=== PATIENT | male | born 1950 | race American Indian/Alaskan Native ===

== ENCOUNTER 2018-07-08 13:27 | Emergency (ER) | payer MEDICARE ==
[2018-07-08] MEDS: KEPPRA 1,000 MG/NS 0.75% 100ML 1,000 MG/100 ML BAG IV ONE ×2 (14:01→14:44)
[2018-07-08 14:12] LABS: Basophils % (Auto) 0.7 % (0.0-1.8); Eosinophils # (Auto) 0.1 K/mm3 (0.0-0.4); Eosinophils % (Auto) 1.2 % (0.0-4.3); Hematocrit 38.5 % (35.5-45.6); Hemoglobin 12.8 gm/dl (11.8-15.2); Lymphocytes # (Auto) 0.6 K/mm3 (1.2-5.4); Lymphocytes % (Auto) 13.9 % (13.4-35.0); Mean Corpuscular HGB Conc 33 % (32-34); Mean Corpuscular Hemoglobin 31 pg (28-32); Mean Corpuscular Volume 92 fl (84-94); Monocytes # (Auto) 0.3 K/mm3 (0.0-0.8); Platelet Count 163 K/mm3 (140-440); Red Blood Count 4.19 M/mm3 (3.65-5.03); Red Cell Distribution Width 13.3 % (13.2-15.2)
[2018-07-08 14:29] LABS: Alanine Aminotransferase 6 units/L (7-56); Albumin 3.8 g/dL (3.9-5); BUN/Creatinine Ratio 10; Blood Urea Nitrogen 7 mg/dL (9-20); Calcium 9.1 mg/dL (8.4-10.2); Hemolysis Index 2
[2018-07-08] MEDS ORDERED: NACL 0.9% 1000 ML 1,000 ML IV ONE (14:39)
--- NOTE | 2018-07-08 14:39 | Cat Scan Report ---
CT HEAD WITHOUT CONTRAST: HISTORY: Seizure. TECHNIQUE: Sequential 2.5mm CT images. COMPARISON: none. FINDINGS: Cerebral Parenchyma: 3 areas of encephalomalacia consistent with chronic infarct is identified. A 2.4 x 2.7 cm cortical infarct is noted in the anterior right frontal lobe. A 3.4 x 2.6 cm cortical infarct is noted in the right posterior frontal lobe. A 1.4 cm cortical infarct is identified in the medial left frontal lobe. Cerebellum: Within normal limits. Brainstem: Within normal limits. Ventricles: Normal. Sella: Normal. Extra-axial spaces: Normal. Basal Cisterns: Normal. Intracranial Hemorrhage: None. Midline Shift: None. Calvarium: Normal. Sinuses: Normal. Mastoid Air Cells: Normal. Visualized Orbits: Normal. IMPRESSION: Chronic infarcts as described above. No acute intracranial process is appreciated.
--- NOTE | 2018-07-08 14:44 | Emergency Department Report ---
HPI - General Chief Complaint: Seizure Time Seen by Provider: 07/08/18 13:52 - HPI HPI: The patient is a 67-year-old male with a history of stroke 4 months ago, with residual left-sided weakness and facial droop, who presents for evaluation of tremor like activity of the right extremities positive one hour prior to arrival. He states that the shaking activity was mild to moderate severity, waxing and waning, but constant for 20-30 minutes. He states that he recalls the entire episode and then no time was he unconscious. The patient denies fever , head injury, headache, neck pain, neck stiffness, chest pain, dyspnea, abdominal pain, vision or hearing changes, smell or taste changes, paresthesias , facial drooping, slurred speech, urine or bowel incontinence or retention, or other focal neurological deficit. ED Past Medical Hx - Past Medical History Hx Hypertension: Yes Hx Congestive Heart Failure: No Hx Diabetes: Yes Hx Asthma: No Hx COPD: No Additional medical history: A fib - Social History Smoking Status: Never Smoker - Medications Home Medications: Home Medications Medication Instructions Recorded Confirmed Last Taken Type Acetaminophen 650 mg PO Q4H PRN 06/12/18 06/12/18 Unknown History Apixaban [Eliquis] 5 mg PO BID 06/12/18 06/12/18 Unknown History Aspirin EC [Aspirin Enteric Coated 81 mg PO QDAY 06/12/18 06/12/18 Unknown History TAB] Lisinopril 20 mg PO DAILY 06/12/18 06/12/18 Unknown History Lispro Insulin [Humalog] 0 unit SQ BID 06/12/18 06/12/18 Unknown History Metoprolol Succinate 100 mg PO DAILY 06/12/18 06/12/18 Unknown History amLODIPine [Norvasc] 5 mg PO DAILY 06/12/18 06/12/18 Unknown History cloNIDine-TTS PATCH [Catapres-Tts 1 patch TD Q7D 06/12/18 06/12/18 Unknown History Patch] hydrALAZINE [Apresoline TAB] 25 mg PO Q8HR 06/12/18 06/12/18 Unknown History metFORMIN [Glucophage] 500 mg PO BID 06/12/18 06/12/18 Unknown History ED Review of Systems ROS: Stated complaint: SEIZURE ACTIVITY Other details as noted in HPI Constitutional: reports shaking of extremities denies: fever ENT: denies: throat or neck pain Respiratory: denies: cough, shortness of breath Cardiovascular: denies: chest pain Endocrine: denies unexplained weight loss or gain Gastrointestinal: denies: abdominal pain, nausea Genitourinary: denies: dysuria Musculoskeletal: denies: leg swelling Skin: denies: rash Neurological: denies: headache Hematological/Lymphatic: denies: easy bleeding or easy bruising Psych: denies sadness or hopelessness Physical Exam - Physical Exam Vital Signs: Vital Signs 07/08/18 07/08/18 13:50 13:51 Temperature 98.8 F Pulse Rate 83 Respiratory 18 18 Rate Blood Pressure 130/86 [Right] O2 Sat by Pulse 99 99 Oximetry Physical Exam: General: well-nourished, well-developed, no acute distress Head: Normocephalic, atraumatic Eyes: normal sclera ENT: Mucous membranes are pink and moist Neck: trachea midline, neck supple, No neck stiffness, no cervical adenopathy Respiratory: Breath sounds equal bilaterally, no wheezing, rales, or rhonchi Cardio: S1 and S2 present, no murmurs, rubs, gallops, capillary refill is brisk Abdomen: Normoactive bowel sounds, soft abdomen, no tenderness Musc: No pitting edema Skin: No rash Neuro: Alert oriented 3, no slurring of speech, no pronator drift, residual left-sided weakness and left arm and leg compared to right, residual left facial droop present, no sensation or new motor deficits, right side reflexes 2 + and left-sided one place on DTR testing, Babinski downgoing, no tremor or seizure like activity Psych: Normal affect ED Course Vital Signs 07/08/18 07/08/18 13:50 13:51 Temperature 98.8 F Pulse Rate 83 Respiratory 18 18 Rate Blood Pressure 130/86 [Right] O2 Sat by Pulse 99 99 Oximetry ED Medical Decision Making - Lab Data Result diagrams: 07/08/18 14:03 07/08/18 14:03 - Medical Decision Making The patient was seen and examined by myself. The patient is placed on a data science and iot manager and continuous pulse ox. On initial evaluation, the patient was found to be in no distress. EKG was negative for findings suggestive of acute cardiac infarct. Labs and imaging are obtained. Lab results reveal low magnesium of 1.4, and an elevated BNP of greater than 1000, otherwise labs were non-concerning including levels of WBC, hemoglobin, hematocrit, renal function, calcium level, CK level. The patient is given IV magnesium for treatment of hypo-magnesium. CT scan the head is negative for acute intracranial disease process. Patient report and evaluation findings are not consistent with seizure as the patient was consciousness throughout episode. The patient was reevaluated after being observed in the ED for > 3 hours without any seizure like activity. He reported that he was asymptomatic and he remains with baseline neuro exam. The patient is stable for discharge with outpatient follow -up. The patient is given follow-up and return instructions. The patient expressed understanding and agreed with the plan. The patient is discharged in stable condition. Critical care attestation.: If time is entered above; I have spent that time in minutes in the direct care of this critically ill patient, excluding procedure time. ED Disposition Clinical Impression: Hypomagnesemia, Tremor Disposition: DC-01 TO HOME OR SELFCARE Is pt being admited?: No Does the pt Need Aspirin: No Condition: Stable Instructions: Hypomagnesemia (ED), Muscle Spasm (ED) Referrals: PRIMARY CARE [Primary Care Provider] - 3-5 Days [facility] [Outside] - 3-5 Days Time of Disposition: 14:49
[2018-07-08] MEDS ORDERED: NACL 0.9% 500 ML 500 ML IV ONE (14:46)
[2018-07-08] MEDS ORDERED: MAGNESIUM SULFATE 2GM/50ML 2 GM/50 ML BAG IV ONE (15:46)
[2018-07-08 16:18] LABS: Bilirubin,Urine NEG (Negative); Blood,Urine NEG (Negative); Color,Urine Yellow (Yellow); Mucus,Urine FEW /HPF
[2018-07-08 16:19] LABS: Protein,Urine >500 mg/dL (Negative)
[2018-07-08 18:02] VITALS: BP 138/97
== END 2018-07-08 18:55 | disposition home or self-care (01) ==
LOC: ED 13:27
DX: R25.1 Tremor, unspecified (principal); E83.42 Hypomagnesemia; I10 Essential (primary) hypertension; E11.9 Type 2 diabetes mellitus without complications; Z79.82 Long term (current) use of aspirin
CPT/HCPCS: 36415; 70450; 80053; 81001; 82550; 83735; 83880; 85025; 96365; 99285; J1953; J3475; J7030; 96361